=== PATIENT | male | born 1980 | race Two or more races ===

== ENCOUNTER 2024-09-03 19:59 | Emergency (ER) | payer OTHER, SELFPAY ==
[2024-09-03 20:06] VITALS: BP 123/73
[2024-09-03 20:28] LABS: % Basophils 0.9 % (0-2); % Eosinophils 5.3 % (0-6); % Immature Granulocytes 0.3 % (0-0.5); % Monocytes 9.2 % (1.7-9.3); % Neutrophils 48.3 % (42.2-75.2); Absolute Basophils 0.1 10^3/uL (0-0.2); Absolute Eosinophils 0.5 10^3/uL (0-0.7); Absolute Lymphocytes 3.2 10^3/uL (1.2-3.4); Absolute Monocytes 0.8 10^3/uL (0.1-0.6); Absolute Neutrophils 4.3 10^3/uL (1.4-6.5); Hematocrit 42.3 % (39.0-52.0); Hemoglobin 14.6 g/dL (13.0-18.0); Mean Corp Hgb Conc. 34.5 g/dL (33.0-37.0); Mean Corpuscular Hgb 30.2 pg (27.0-31.0); Mean Corpuscular Volume 87.6 fL (80.0-94.0); Mean Platelet Volume 9.4 fL (7.4-10.4); Nucleated Red Blood Cells % 0 % (-); Platelet Count 314 10^3/uL (130-400); Red Blood Cell Count 4.83 10^6/uL (4.70-6.10); Red Cell Dist. Width 12.8 % (11.5-14.5); White Blood Cell Count 8.9 10^3/uL (4.8-10.8)
[2024-09-03 20:43] LABS: ALT (SGPT) 37 U/L (0-50); AST (SGOT) 26 U/L (17-59); Albumin 4.1 g/dl (3.5-5.0); Alkaline Phosphatase 71 U/L (38-126); Blood Urea Nitrogen 16 mg/dl (9-20); Calcium 9.6 mg/dl (8.4-10.2); Carbon Dioxide 26 mmol/L (22-30); Chloride 101 mmol/L (98-107); Glucose 107 mg/dl (70-99); Potassium 4.2 mmol/L (3.5-5.1); Sodium 136 mmol/L (135-145); Total Bilirubin 0.4 mg/dl (0.2-1.3); eGFR > 60.00
[2024-09-03 20:50] LABS: Troponin I < 0.012 ng/ml
[2024-09-03 20:57] VITALS: BP 110/80
[2024-09-03 21:00] VITALS: BP 98/70
--- NOTE | 2024-09-03 22:01 | ED.GENMED ---
History of Present Illness
General
Chief Complaint: Cardiac Symptoms
Source: patient and spouse
Exam Limitations: none
Time Seen by Provider: 09/03/24 21:11
Nursing documentation reviewed up to this point in time: agreed with
History of Present Illness
History of Present Illness:
43-year-old male with past medical history of hyperlipidemia presents to the ER for evaluation of chest pain. Patient reports symptoms have been intermittent for the past 4 to 5 days. He reports that they typically are related to food intake and
generally transient. He describes sensation of something 'stuck' in the left chest/axillary region. He denies any associated shortness of breath, nausea, vomiting, diaphoresis. Denies any dizziness or lightheadedness. Denies any abdominal pain.
He says that today he had an episode that was longer lasting about for 5 hours which prompted trip to the ER. Since arrival chest pain seems to have resolved. He denies any personal history of cardiac issues, says that he had routine stress test
and echocardiogram in 2020 through [facility] which was reportedly normal. Apparently he has a family history of heart disease in his father.
Review of Systems
Review of Systems
All Other Systems: ROS reviewed and negative except as documented in HPI and ROS
Constitutional: Denies fever
Respiratory: Denies cough or trouble breathing
Cardiac: Reports chest pain
ABD/GI: Denies abdominal pain, nausea or vomiting
Musculoskeletal: Denies edema
Neurological: Denies headache
Phy Exam
Physical Exam
Physical Exam:
General: Awake, alert, oriented x3; no acute distress
Head: Normocephalic, atraumatic
Eyes: Conjunctiva normal
Throat: Airway intact, handling secretions
Neck: Trachea midline, supple without meningismus
Lungs: Clear to auscultation bilaterally, no wheezing, rales, rhonchi
Heart: Regular rate and rhythm, no murmurs, gallops, or rubs
Abd: Soft, non distended, nontender
Neuro: No gross deficit
Skin: no rash in area of concern
Extremities: No edema in extremities, equal pulses in all extremities
Scores
Heart Failure Risk
Heart Failure Risk Score: Not Applicable
Heart Score for Chest Pain Patients
STEMI patient?: No
History: Slightly or Non-Suspicious
ECG: Normal
Age: </= 45 years
Risk Factors: 1 or 2 Risk Factors
Troponin: </= Normal Limit
Heart Score for Chest Pain Patients: 1
Heart Score Risk: 2.5% MACE over next 6 weeks
PERC Rule Criteria
Age <50 years: Yes
HR <100 bpm: Yes
Room air oxygen sat >94%: Yes
History of DVT or PE: No
Recent trauma or surgery: No
Hemoptysis: No
Exogenous estrogen: No
Clinical signs suggestive of DVT: No
: No
Considered low risk for PE: Yes
PERC Score: 0
PE can be excluded by PERC: Yes
Withdrawal Assessment of Alcohol
Withdrawal Assessment Completed?: Not applicable
Course
Orders/Labs/Results
Orders:
Orders
09/03/24 20:00
ECG [Electrocardiogram (*1)] Urgent
Reason for Study: Chest Pain
09/03/24 20:01
EKG- Treatment ONCE
09/03/24 20:14
Complete Blood Count/With Diff Urgent
Comprehensive Metabolic Panel Urgent
Troponin I Urgent
09/03/24 21:13
CR Chest - 2 Views Urgent
Comment:
Reason For Exam: chest pain
09/03/24 22:05
Troponin I Urgent
09/03/24 22:09
Electrocardiogram (*1) Urgent
Reason for Study: Chest Pain
EKG- Treatment ONCE
Abnormal Lab Results
09/03/24
20:14
Absolute Monos (auto) 0.8 H 10^3/uL
(0.1-0.6)
Glucose 107 H mg/dl
(70-99)
09/03/24 20:14
09/03/24 20:14
Vital Signs
Initial and Last Documented VS:
Initial Vital Signs
Temp Pulse Resp BP Pulse Ox
36.6 C 77 20 123/73 98
09/03/24 20:06 09/03/24 20:06 09/03/24 20:06 09/03/24 20:06 09/03/24 20:06
Last Documented Vital Signs
Temp Pulse Resp BP Pulse Ox
36.6 C 73 18 98/70 97
09/03/24 20:06 09/03/24 21:45 09/03/24 21:45 09/03/24 21:00 09/03/24 21:45
MDM/Problems Addressed
Differential Diagnosis Includes:
GERD/esophagitis, ACS/angina, costochondritis, pneumothorax/pneumonia considered less likely; very low clinical suspicion for PE, PERC negative in my judgment indication for further workup for this diagnosis; similarly very low clinical suspicion
for aortic dissection (no abrupt onset, pain resolved, no hypertension, benign exam) and no further workup indicated for this diagnosis
MDM/Problems Addressed:
43-year-old male presents for evaluation of chest pain intermittent over the past few days associated with food intake. Had a longer than typical episode today which prompted ER visit. Symptoms have resolved by the time my assessment. Vitals and
exam as above. He had an EKG in triage which shows sinus rhythm with no acute ischemic changes. Labs sent in triage including CBC and CMP which were unremarkable. Troponin undetectable x 1. Will repeat troponin. Check chest x-ray. Reassess
after the above. Clinically suspect likely GI related but patient is concerned about family history of heart issues--can refer to cardiology for outpatient evaluation.
Repeat troponin negative. Chest x-ray reviewed by me shows no acute disease. Patient remains asymptomatic, stable vitals. Stable for discharge will trial PPI. Referred for chest pain hotline given family history but lower suspicion that this is
cardiac in nature. Patient very comfortable to this plan. Spoke about return precautions all questions answered.
*Radiology
Radiology exam reviewed: preliminary read by ED provider
*Pulse Oximetry
Patient hypoxic: no
*EKG
Interpreted by ED Provider?: Yes
Heart Rate: 80
Rate: normal
Rhythm: sinus
[place]: normal axis
Interval: normal interval
QRS Pattern: normal QRS
Ischemia: no ischemia
*Critical Care Note
Total Time (30-74mins, 75-104mins- exclusive of procedures): Not Applicable
Data Reviewed
Source: patient and spouse
ED Attending Note
-
Portions of this chart may have been created with voice recognition software.� Occasional wrong word or��sound alike� substitutions may have occurred due to the inherent limitations of voice recognition software.
Discharge Plan
Departure
Patient Disposition: Home (Routine Discharge)
Date of Disposition: 09/03/24
Time of Disposition: 22:35
Patient with high blood pressure during this ER visit?: No
Discharge Problem:
Chest pain
Instructions: Chest Pain CBC Follow Up
Prescriptions:
New
pantoprazole [Protonix] 40 mg tablet,delayed release (DR/EC)
40 mg PO DAILY Qty: 30 0RF
Referrals:
Cyrus Pollard MD [Active] - Call in 1-3 days for appt
Activity Restrictions/Additional Instructions:
Thank you for visiting the Emergency Department at [facility].
1. Please schedule a follow up appointment as directed. Call first thing tomorrow morning to make an appointment.
2. If indicated, please take your medications as instructed and indicated on discharge paperwork.
3. If any of your symptoms do not improve, or persist, or become more severe within 6-12 hours, please return to the emergency department for further care.
4. Please return to the emergency department if you develop a headache, neck pain/stiffness, fever greater than 100.4F, chest pain, shortness of breath, persistent nausea, vomiting, slurred speech, difficulty walking, numbness/tingling, weakness,
signs of infection or any other symptoms that are worrisome to you.
Please call [phone] if you have any questions.
Interventions
Interventions:
*Risk Screen - Suicide Last Done: 09/03/24 20:06
*General Assessment Last Done: 09/03/24 20:06
*Neglect/Abuse Screening Last Done: 09/03/24 20:06
ED- Pulmonary Assessment Last Done: 09/03/24 22:02
ED- Cardiac Assessment Last Done: 09/03/24 22:02
Discharge Date and Time
Print Language: MONGOLIAN
[2024-09-03 22:02] VITALS: BMI 30.2
[2024-09-03 22:15] VITALS: BP 102/76
[2024-09-03 22:34] LABS: Troponin I < 0.012 ng/ml
== END 2024-09-03 22:49 | disposition home or self-care (01) ==
LOC: EMR 19:59
PROVIDERS: EMERGENCY PHYSICIAN Emergency Medicine
DX: R07.9 Chest pain, unspecified (principal); E78.5 Hyperlipidemia, unspecified; Z82.49 Family history of ischemic heart disease and other diseases of the circulatory system
CPT/HCPCS: 99285; 71046; 80053; 84484; 85025; 93005